=== PATIENT | female | born 1990 | race Caucasian/White ===

== ENCOUNTER 2018-09-12 07:57 | Inpatient (IN) | payer OTHER ==
--- NOTE | 2018-09-13 08:55 | PR ---
[facility] [address] [facility] [place], [place] [address] Signed Progress Notes IP Datetime Report Generated by CPN: 09/13/2018 08:55 PROGRESS NOTES: [id number] Impression: Normal progression of labor Procedures: Artificial ROM Plan: Anticipate Vaginal Delivery VITAL SIGNS: [id number] Vital Signs: Reviewed; Within Normal Limits EXAM: [id number] Dilatation: 2.5 Effacement: 50 Station: -2 Uterine Contractions: irregular MEMBRANES: [id number] Membrane Status: Ruptured Amniotic Fluid Color: Clear ROM Note: AROM without difficulty, moderate amount clear fluid, head well-applied to cervix Comments: FS BS = 83, continue IV Insulin protocol during labor Fetus A: [id number] FHR Baseline: 135 Variability: Moderate 6-25bpm Accelerations: 15X15 Presentation: Vertex Fetus B: [id number] Signing Physician: Edna Alaniz MD Copies: ~ *Electronically Signed* 09/13/18 0855 EDNA ALANIZ MD PATIENT NAME: HOLLAND URRUTIA PROGRESS NOTE DATE OF : 91 PHYSICIAN: EDNA ALANIZ MD RPT #: [id number] REPORT IS CONFIDENTIAL AND NOT TO BE RELEASED WITHOUT AUTHORIZATION
--- NOTE | 2018-09-13 12:48 | PR ---
[facility] [address] [facility] [place], [place] [address] Signed Progress Notes IP Datetime Report Generated by CPN: 09/13/2018 12:48 PROGRESS NOTES: [id number] Impression: Normal progression of labor Procedures: Artificial ROM Plan: Continue present management; Anticipate Vaginal Delivery VITAL SIGNS: [id number] Vital Signs: Reviewed; Within Normal Limits EXAM: [id number] Dilatation: 4.0 Effacement: 75 Station: -2 Uterine Contractions: every 2-3 minutes MEMBRANES: [id number] Membrane Status: Ruptured Amniotic Fluid Color: Clear ROM Note: AROM without difficulty, moderate amount clear fluid, head well-applied to cervix Comments: Tolerating contracitons, contracitons getting stronger FS BS = 81 Doing well. Continue monitoring Fetus A: [id number] FHR Baseline: 135 Variability: Moderate 6-25bpm Accelerations: 15X15 Decelerations: None Presentation: Vertex Fetus B: [id number] Signing Physician: Edna Alaniz MD Copies: ~ *Electronically Signed* 09/13/18 1248 EDNA ALANIZ MD PATIENT NAME: HOLLAND URRUTIA PROGRESS NOTE DATE OF : 91 PHYSICIAN: EDNA ALANIZ MD RPT #: [id number] REPORT IS CONFIDENTIAL AND NOT TO BE RELEASED WITHOUT AUTHORIZATION
--- NOTE | 2018-09-13 16:56 | PR ---
[facility] [address] [facility] [place], [place] [address] Signed Progress Notes IP Datetime Report Generated by CPN: 09/13/2018 16:56 PROGRESS NOTES: [id number] Impression: Normal progression of labor Procedures: Epidural Placement Plan: Continue present management; Anticipate Vaginal Delivery VITAL SIGNS: [id number] Vital Signs: Reviewed; Within Normal Limits EXAM: [id number] Dilatation: 7.0 Effacement: 90 Station: -1 Uterine Contractions: every 2-3 minutes MEMBRANES: [id number] Membrane Status: Ruptured Amniotic Fluid Color: Clear ROM Note: AROM without difficulty, moderate amount clear fluid, head well-applied to cervix Comments: Comfortable now with Epidural, will continue monitoring. FS BS's continuing to be in acceptible range Fetus A: [id number] FHR Baseline: 135 Variability: Moderate 6-25bpm Accelerations: 15X15 Decelerations: None Presentation: Vertex Fetus B: [id number] Signing Physician: Edna Alaniz MD Copies: ~ *Electronically Signed* 09/13/18 1656 EDNA ALANIZ MD PATIENT NAME: HOLLAND URRUTIA PROGRESS NOTE DATE OF : 91 PHYSICIAN: EDNA ALANIZ MD RPT #: [id number] REPORT IS CONFIDENTIAL AND NOT TO BE RELEASED WITHOUT AUTHORIZATION
--- NOTE | 2018-09-13 19:23 | PR ---
[facility] [address] [facility] [place], [place] [address] Signed Progress Notes IP Datetime Report Generated by CPN: 09/13/2018 19:23 PROGRESS NOTES: [id number] Impression: Slow Progression of Labor Procedures: Epidural Placement Plan: Augmentation; Anticipate Vaginal Delivery VITAL SIGNS: [id number] Vital Signs: Reviewed; Within Normal Limits VS Notable Details: FS BS = 91 EXAM: [id number] Dilatation: 8.0 Effacement: 100 Station: -2 Uterine Contractions: every 5-6 minutes MEMBRANES: [id number] Membrane Status: Ruptured Amniotic Fluid Color: Clear ROM Note: AROM without difficulty, moderate amount clear fluid, head well-applied to cervix Comments: Comfortable with EPidural, but contracitons spacing out, no change in cervix past hour. Will start Pitocin Augmentation now Fetus A: [id number] FHR Baseline: 140 Variability: Moderate 6-25bpm Accelerations: 15X15 Decelerations: None Presentation: Vertex Fetus B: [id number] Signing Physician: Edna Alaniz MD Copies: ~ *Electronically Signed* 09/13/181922 EDNA ALANIZ MD PATIENT NAME: HOLLAND URRUTIA PROGRESS NOTE DATE OF : 91 PHYSICIAN: EDNA ALANIZ MD RPT #: [id number] REPORT IS CONFIDENTIAL AND NOT TO BE RELEASED WITHOUT AUTHORIZATION
--- NOTE | 2018-09-13 22:11 | PR ---
[facility] [place] [facility] [address] [facility] [place], [place] [address] Signed Progress Notes IP Datetime Report Generated by CPN: 09/13/2018 22:11 PROGRESS NOTES: [id number] Impression: Slow Progression of Labor Procedures: Epidural Placement Plan: Continue present management; Augmentation; Anticipate Vaginal Delivery VITAL SIGNS: [id number] Vital Signs: Reviewed; Within Normal Limits VS Notable Details: FS BS = 91 EXAM: [id number] Dilatation: 9.5 Effacement: 100 Station: 0 Uterine Contractions: every 1-3 minutes MEMBRANES: [id number] Membrane Status: Ruptured Amniotic Fluid Color: Clear ROM Note: AROM without difficulty, moderate amount clear fluid, head well-applied to cervix Comments: Getting uncomfortable with Epidural, would like to try N2O. Expect to be able to start pushing soon. Fetus A: [id number] FHR Baseline: 150 Variability: Moderate 6-25bpm Accelerations: 15X15 Decelerations: None Presentation: Vertex Fetus B: [id number] Signing Physician: Bean Alaniz MD Copies: ~ *Electronically Signed* 09/13/18 2219 BEAN ALANIZ MD PATIENT NAME: REDIGER,HOLLAND JUDY PROGRESS NOTE DATE OF : 91 PHYSICIAN: BEAN ALANIZ MD RPT #: [id number] REPORT IS CONFIDENTIAL AND NOT TO BE RELEASED WITHOUT AUTHORIZATION
--- NOTE | 2018-09-13 23:00 | PR ---
[facility] [address] [facility] [place], [place] [address] Signed Progress Notes IP Datetime Report Generated by CPN: 09/13/2018 23:00 PROGRESS NOTES: [id number] Impression: Slow Progression of Labor Procedures: Epidural Placement Plan: Continue present management; Augmentation; Anticipate Vaginal Delivery VITAL SIGNS: [id number] Vital Signs: Reviewed; Within Normal Limits VS Notable Details: FS BS = 91 EXAM: [id number] Dilatation: 10.0 Effacement: 100 Station: 0 Uterine Contractions: every 1-3 minutes MEMBRANES: [id number] Membrane Status: Ruptured Amniotic Fluid Color: Clear ROM Note: AROM without difficulty, moderate amount clear fluid, head well-applied to cervix Comments: Starting to push now, using N2O as needed Fetus A: [id number] FHR Baseline: 140 Variability: Moderate 6-25bpm Accelerations: 15X15 Decelerations: None Presentation: Vertex Fetus B: [id number] Signing Physician: Edna Alaniz MD Copies: ~ *Electronically Signed* 09/13/18 7880 EDNA ALANIZ MD PATIENT NAME: HOLLAND URRUTIA PROGRESS NOTE DATE OF : 91 PHYSICIAN: EDNA ALANIZ MD RPT #: [id number] REPORT IS CONFIDENTIAL AND NOT TO BE RELEASED WITHOUT AUTHORIZATION
--- NOTE | 2018-09-14 11:29 | PR ---
[facility] [address] [facility] [place] [address] Signed PP Progress Notes Datetime Report Generated by CPN: 09/14/2018 11:29 SUBJECTIVE: [id number] Pain: Within normal limits Nausea/Vomiting: Denies Vital Signs: [id number] Vital Signs: Reviewed; Within Normal Limits EXAM: [id number] Abdomen/Uterus: Normal Lochia: Normal Extremities: Normal IMPRESSION/PLAN/PROCEDURES: H8426544 Impression: Normal progression Plan: Continue present management Procedures: None Progress Notes: Doing well, without complaint, feeling much better than during delivery. Signing Physician: Edna Alaniz MD Copies: ~ *Electronically Signed* 09/14/18 1129 EDNA ALANIZ MD PATIENT NAME: HOLLAND URRUTIA PROGRESS NOTE DATE OF : 91 PHYSICIAN: EDNA ALANIZ MD RPT #: [id number] REPORT IS CONFIDENTIAL AND NOT TO BE RELEASED WITHOUT AUTHORIZATION
--- NOTE | 2018-09-15 13:01 | PR ---
[facility] [address] [place] [address] Signed PP Progress Notes Datetime Report Generated by CPN: 09/15/2018 13:01 SUBJECTIVE: [id number] Pain: Within normal limits Nausea/Vomiting: Denies Vital Signs: [id number] Vital Signs: Reviewed; Within Normal Limits Notable Details: PP Hgb/Hct = 8.7/25.2 EXAM: [id number] Abdomen/Uterus: Normal Lochia: Normal Extremities: Normal IMPRESSION/PLAN/PROCEDURES: H5432752 Impression: Normal progression Plan: Continue present management Procedures: None Progress Notes: Doing well, without complaint. Home tomorrow Signing Physician: Edna Alaniz MD Copies: ~ *Electronically Signed* 09/15/18 1301 EDNA ALANIZ MD PATIENT NAME: HOLLAND URRUTIA PROGRESS NOTE DATE OF : 91 PHYSICIAN: EDNA ALANIZ MD RPT #: [id number] REPORT IS CONFIDENTIAL AND NOT TO BE RELEASED WITHOUT AUTHORIZATION
--- NOTE | 2018-09-16 11:37 | PR ---
[facility] [address] [facility] [place], [place] [address] Signed PP Progress Notes Datetime Report Generated by CPN: 09/16/2018 11:36 SUBJECTIVE: [id number] Pain: Within normal limits Nausea/Vomiting: Denies Vital Signs: [id number] Vital Signs: Reviewed; Within Normal Limits Notable Details: PP Hgb/Hct = 8.7/25.2 EXAM: [id number] Cardiovascular: Not Done Respiratory: Not Done Abdomen/Uterus: Abnormal Lochia: Normal Vulva/Perineum: Not Done Breasts: Not Done CVA Tenderness: Not Done Extremities: Abnormal Incision: Not Applicable Progress: Normal Exam Comments: Fundus firm, NT @ U-1. 2+ LE edema IMPRESSION/PLAN/PROCEDURES: U7873065 Impression: Normal progression Plan: Discharge Procedures: None Progress Notes: Doing well. She is ready for D/C. Signing Physician: Janie Boss MD Copies: ~ *Electronically Signed* 09/16/18 1136 JANIE BOSS MD PATIENT NAME: GHADAHOLLAND PROGRESS NOTE DATE OF : 91 PHYSICIAN: JANIE BOSS MD RPT #: [id number] REPORT IS CONFIDENTIAL AND NOT TO BE RELEASED WITHOUT AUTHORIZATION
== END 2018-09-16 15:45 | disposition home or self-care (01) | DRG 806 ==
LOC: FBC 07:57
PROVIDERS: ADMIT General Practice
PROC: 10E0XZZ Delivery of Products of Conception, External Approach (ICD-10-PCS; principal; 2018-09-13)
PROC: 0KQM0ZZ Repair Perineum Muscle, Open Approach (ICD-10-PCS; 2018-09-13)
PROC: 10907ZC Drainage of Amniotic Fluid, Therapeutic from Products of Conception, Via Natural or Artificial Opening (ICD-10-PCS; 2018-09-13)
PROC: 00HU33Z Insertion of Infusion Device into Spinal Canal, Percutaneous Approach (ICD-10-PCS; 2018-09-13)
PROC: 3E0R3BZ Introduction of Anesthetic Agent into Spinal Canal, Percutaneous Approach (ICD-10-PCS; 2018-09-13)
PROC: 3E0P7VZ Introduction of Hormone into Female Reproductive, Via Natural or Artificial Opening (ICD-10-PCS; 2018-09-13)
DX: O24.424 Gestational diabetes mellitus in childbirth, insulin controlled (principal); O72.1 Other immediate postpartum hemorrhage; Z37.0 Single live birth; Z3A.39 39 weeks gestation of pregnancy; O99.824 Streptococcus B carrier state complicating childbirth; O70.1 Second degree perineal laceration during delivery
CPT/HCPCS: 01960; 36415; 85027; J2540; J2590; J7060; J7120

== ENCOUNTER 2022-10-05 00:03 | Inpatient (IN) | payer OTHER ==
[~2022-10-05] VITALS: Ht 175.3 cm; Wt 99.8 kg
--- NOTE | 2022-10-05 11:11 | PR ---
[facility] [address] [facility] [place], [place] [address] Signed Progress Notes IP Datetime Report Generated by CPN: 10/05/2022 11:10 PROGRESS NOTES: [id number] Impression: Normal Progression of Labor Procedures: Artificial ROM Plan: Continue Present Management; Anticipate Vaginal Delivery VITAL SIGNS: [id number] Vital Signs: Reviewed; Within Normal Limits VS Notable Details: BS = 86 EXAM: [id number] Dilatation: 3.0 Effacement: 25 Station: -2 Contractions: every 4-6 minutes MEMBRANES: [id number] Membranes Status: Ruptured Comments: Beginning to feel more contractions, still mild. Would like Epidural later - ordered. Will start IV Insulin sliding scale once contractions get a little stronger. FETUS A: A7242097 FHR Baseline: 140 Variability: Moderate 6-25bpm Accelerations: 10X10 FETUS B: [id number] Signing Physician: Edna Alaniz MD Copies: ~ *Electronically Signed* 10/05/22 1110 EDNA ALANIZ MD PATIENT NAME: HLOLAND URRUTIA PROGRESS NOTE DATE OF : 91 PHYSICIAN: EDNA ALANIZ MD RPT #: [id number] REPORT IS CONFIDENTIAL AND NOT TO BE RELEASED WITHOUT AUTHORIZATION
--- NOTE | 2022-10-05 16:50 | PR ---
[facility] [address] [facility] [place], [place] [address] Signed Progress Notes IP Datetime Report Generated by CPN: 10/05/2022 16:50 PROGRESS NOTES: [id number] Impression: Normal Progression of Labor Procedures: Artificial ROM Plan: Continue Present Management VITAL SIGNS: B7700028 Vital Signs: Reviewed; Within Normal Limits VS Notable Details: BS = 86 EXAM: I0089090 Dilatation: 4.5 Effacement: 80 Station: -2 Contractions: every 4-6 minutes MEMBRANES: [id number] Membranes Status: Ruptured Comments: Doing well, but feeling contractions. Anesthesia on way to reevaluate. Continue monitoring BS's and labor pattern. May need Pitocin augmentation. FETUS A: [id number] FHR Baseline: 140 Variability: Moderate 6-25bpm Accelerations: 10X10 FETUS B: [id number] Signing Physician: Edna Alaniz MD Copies: ~ *Electronically Signed* 10/05/22 1340 EDNA ALANIZ MD PATIENT NAME: HOLLAND URRUTIA PROGRESS NOTE DATE OF : 91 PHYSICIAN: EDNA ALANIZ MD RPT #: [id number] REPORT IS CONFIDENTIAL AND NOT TO BE RELEASED WITHOUT AUTHORIZATION
--- NOTE | 2022-10-05 17:47 | PR ---
[facility] [address] [facility] [place], [place] [address] Signed Progress Notes IP Datetime Report Generated by CPN: 10/05/2022 17:47 PROGRESS NOTES: [id number] Impression: Normal Progression of Labor Other Impressions: Slow progress Procedures: Artificial ROM Plan: Continue Present Management VITAL SIGNS: [id number] Vital Signs: Reviewed; Within Normal Limits VS Notable Details: BS = 86 EXAM: [id number] Dilatation: 5.0 Effacement: 90 Station: -2 Contractions: every 4-6 minutes MEMBRANES: [id number] Membranes Status: Ruptured Comments: Patient tolerating contractions well with Epidural. Continue monitoring. FETUS A: [id number] FHR Baseline: 140 Variability: Moderate 6-25bpm Accelerations: 10X10 FETUS B: [id number] Signing Physician: Edna Alaniz MD Copies: ~ *Electronically Signed* 10/05/22 1747 EDNA ALANIZ MD PATIENT NAME: HOLLAND URRUTIA PROGRESS NOTE DATE OF : 91 PHYSICIAN: EDNA ALANIZ MD RPT #: [id number] REPORT IS CONFIDENTIAL AND NOT TO BE RELEASED WITHOUT AUTHORIZATION
--- NOTE | 2022-10-05 18:29 | PR ---
[facility] [address] [facility] [place], [place] [address] Signed Progress Notes IP Datetime Report Generated by CPN: 10/05/2022 18:29 PROGRESS NOTES: [id number] Impression: Normal Progression of Labor Other Impressions: Slow Progress Procedures: Intrauterine Pressure Catheter; Scalp Electrode Plan: Augmentation VITAL SIGNS: O0169294 Vital Signs: Reviewed; Within Normal Limits VS Notable Details: BS = 86 EXAM: [id number] Dilatation: 5.0 Effacement: 90 Station: -2 Contractions: every 4-6 minutes MEMBRANES: [id number] Membranes Status: Ruptured Comments: Contractions seem to be spacing out. Will start Pitocin augmentation. May need Anesthesia to return if patient getting more uncomfortable. FETUS A: [id number] FHR Baseline: 140 Variability: Moderate 6-25bpm Accelerations: 10X10 FETUS B: [id number] Signing Physician: Bean Alaniz MD Copies: ~ *Electronically Signed* 10/05/22 1829 BEAN ALANIZ MD PATIENT NAME: VAISHALIHOLLAND BAILEY PROGRESS NOTE DATE OF : 91 PHYSICIAN: BEAN ALANIZ MD RPT #: [id number] REPORT IS CONFIDENTIAL AND NOT TO BE RELEASED WITHOUT AUTHORIZATION
--- NOTE | 2022-10-05 19:57 | PR ---
[facility] [address] [facility] [place], [place] [address] Signed Progress Notes IP Datetime Report Generated by CPN: 10/05/2022 19:57 PROGRESS NOTES: [id number] Impression: Normal Progression of Labor Other Impressions: Slow Progress Procedures: Intrauterine Pressure Catheter; Scalp Electrode Plan: Continue Present Management; Anticipate Vaginal Delivery VITAL SIGNS: A1902109 Vital Signs: Reviewed; Within Normal Limits VS Notable Details: BS = 86 EXAM: [id number] Dilatation: 8.0 Effacement: 90 Station: -1 Contractions: every 4-6 minutes MEMBRANES: [id number] Membranes Status: Ruptured Comments: Now comfortable with Epidural; had to be restarted, so Pitocin not started yet. Will give low dose now. FETUS A: [id number] FHR Baseline: 140 Variability: Moderate 6-25bpm Accelerations: 10X10 FETUS B: [id number] Signing Physician: Bean Alaniz MD Copies: ~ *Electronically Signed* 10/05/221956 BEAN ALANIZ MD PATIENT NAME: VAISHALIHOLLAND BAILEY PROGRESS NOTE DATE OF : 91 PHYSICIAN: BEAN ALANIZ MD RPT #: [id number] REPORT IS CONFIDENTIAL AND NOT TO BE RELEASED WITHOUT AUTHORIZATION
--- NOTE | 2022-10-05 21:01 | PR ---
[facility] [address] [facility] [place], [place] [address] Signed Progress Notes IP Datetime Report Generated by CPN: 10/05/2022 21:00 PROGRESS NOTES: [id number] Impression: Normal Progression of Labor Other Impressions: Slow Progress Procedures: Intrauterine Pressure Catheter; Scalp Electrode Plan: Continue Present Management; Anticipate Vaginal Delivery VITAL SIGNS: Z4718759 Vital Signs: Reviewed; Within Normal Limits VS Notable Details: BS = 86 EXAM: [id number] Dilatation: 9.5 Effacement: 90 Station: 0 Contractions: every 4-6 minutes MEMBRANES: [id number] Membranes Status: Ruptured Comments: Comfortable with Epidural. Several decels, some with late component, but good variability and expect delivery soon, so will continue close monitoring. Try different positions. FETUS A: [id number] FHR Baseline: 140 Variability: Moderate 6-25bpm Accelerations: 10X10 FETUS B: [id number] Signing Physician: Edna Alaniz MD Copies: ~ *Electronically Signed* 10/05/222099 EDNA ALANIZ MD PATIENT NAME: HOLLAND URRUTIA PROGRESS NOTE DATE OF : 91 PHYSICIAN: EDNA ALANIZ MD RPT #: [id number] REPORT IS CONFIDENTIAL AND NOT TO BE RELEASED WITHOUT AUTHORIZATION
--- NOTE | 2022-10-06 04:34 | PR ---
[facility] [address] [place], [place] [address] Signed PP Progress Notes Datetime Report Generated by N: 10/06/2022 04:34 SUBJECTIVE: [id number] Vital Signs: X2226443 Vital Signs: Reviewed; Within Normal Limits Abdomen/Uterus: Abnormal Vulva/Perineum: Normal Extremities: Normal Exam Comments: uterus about 2 fb above umbilicus, expresed additional about 400 ml clots, with more felt to be in cervix, but exam too painful for patient IMPRESSION/PLAN/PROCEDURES: [id number] Other Impression: PP Hemorrhage, probably uterine atony Other Plans: TXA IV. DIC Panel, Hemogram STAT Other Procedures: to OR for EUA, PP Curettage Progress Notes: Patient about 7 hours PP now, was doing well, but when got up to try to void, had about 500 ml of clots and increasing pelvic pain. Bowens cath placed and Pitocin restarted, still having some cramping, no active bleeding. Discussed findings, probable cuase. Recommend going to OR for EUA, PP Curettage, possible Bakri Balloon. [employer] answered. Consent signed. Signing Physician: Edna Pena MD Copies: ~ *Electronically Signed* 10/06/22 0434 EDNA PENA MD PATIENT NAME: HOLLAND URRUTIA PROGRESS NOTE DATE OF : 91 PHYSICIAN: EDNA PENA MD RPT #: [id number] REPORT IS CONFIDENTIAL AND NOT TO BE RELEASED WITHOUT AUTHORIZATION
--- NOTE | 2022-10-06 06:12 | PR ---
[facility] [address] [place], [place] [address] Signed PP Progress Notes Datetime Report Generated by CPN: 10/06/2022 06:11 SUBJECTIVE: [id number] Pain: Within Normal Limits Vital Signs: W2374833 Vital Signs: Reviewed Notable Details: DIC Panel pending HGb/Hct = 10.9/32.0 Abdomen/Uterus: Abnormal Vulva/Perineum: Normal Extremities: Normal Exam Comments: uterus about 2 fb above umbilicus, expresed additional about 400 ml clots, with more felt to be in cervix, but exam too painful for patient IMPRESSION/PLAN/PROCEDURES: [id number] Other Impression: PP Cervical Laceration Other Plans: TXA IV. DIC Panel, Hemogram STAT Other Procedures: to OR for EUA, PP Curettage Progress Notes: Post-op EUA, PP Curettage, Repair of Cervical Laceration About 50 ml clot in cervix, minimal clots in uterine fundus, small cervical laceration @ 6:00 Patient tolerated procedure well, returning to [facility] Signing Physician: Edna Alaniz MD Copies: ~ *Electronically Signed* 10/06/22 0611 EDNA ALANIZ MD PATIENT NAME: HOLLAND URRUTIA PROGRESS NOTE DATE OF : 91 PHYSICIAN: EDNA ALANIZ MD RPT #: [id number] REPORT IS CONFIDENTIAL AND NOT TO BE RELEASED WITHOUT AUTHORIZATION
--- NOTE | 2022-10-06 06:18 | NUR ---
10/06/22 0618 Isadora,Araceli 0565 PT ARRIVED TO PACU AND DENIES PAIN AND NAUSEA. PT UNABLE TO MOVE LEGS OR FEET, EDUCATION GIVEN. VSS. PT REPORTS BEING DROWSY. PLAN OF CARE DISSCUSSED. 0610 PT CONTINMUES TO DENY PAIN AND NAUSEA, RESTING IN BED WITH EYES CLOSED.
--- NOTE | 2022-10-06 11:13 | OR ---
[facility] [address] [place], [place] [address] Signed DATE OF OPERATION: 10/06/2022 SURGEON: Bean Pena MD The patient of Dr. Pena. PREOPERATIVE DIAGNOSIS: hemorrhage, probable uterine atony. POSTOPERATIVE DIAGNOSES: hemorrhage, cervical laceration and uterine atony. PROCEDURE: Exam under anesthesia with curette and repair of cervical laceration. PARER: Dr. Bright. ANESTHESIA: Spinal with IV sedation. ESTIMATED BLOOD LOSS: 50 mL clot in the lower segment removed plus approximately 20 mL of bleeding during the procedure. COMPLICATIONS: None. DRAINS: Bowens to bladder. FINDINGS: Bowens catheter was already in place in the bladder on admission to the OR. There is no active bleeding, but there was approximately 50 mL clot in the cervix and lower segment. The rest of the uterine cavity had minimal small clots. The cervix had a very small laceration at 6 o'clock with only slight oozing. No excessive bleeding. DESCRIPTION OF PROCEDURE: The patient was brought to the operating room, placed in the supine position. After adequate spinal anesthesia was obtained, she was placed in the dorsal lithotomy Electronically Signed By: BEAN PENA MD 10/06/22 1113 PATIENT NAME: HOLLAND URRUTIA OPERATIVE REPORT DATE OF : 91 REPORT #: [id number] PHYSICIAN: BEAN PENA MD PCP: CAITLYN SARAH NP REPORT IS CONFIDENTIAL AND NOT TO BE RELEASED WITHOUT AUTHORIZATION [facility] [address] [facility] [place], [place] [address] Signed position, prepped and draped in usual sterile fashion. Bowens catheter was already in place. Manual exam was done. The large clot was noted to be sitting in the cervix in the lower segment, this was gently removed. On manual exploration of the uterus, no additional clots were felt. The fundus was palpated and seemed to be below the level of the umbilicus. The cervix was grasped with two ring forceps. The entire cervix was examined. At 6 o'clock, there seemed to be a very small laceration with a small amount of bleeding, did not seem to be enough to have caused the amount of bleeding earlier, but there was some bleeding, so this laceration was repaired with 0-chromic suture in a running locking stitch and a banjo curette was carefully introduced in the uterine cavity and uterine cavity was scraped with minimal very tiny clots removed. No bleeding. The uterus was palpated, massaged. The patient already had been given TXA and methergine and was receiving IV Pitocin, so the uterine atony appeared to be resolved. Small amount of oozing still from the cervix, so the cervix and lower segment were packed with gauze and left in place for 5 minutes. The gauze was then removed and the cervix examined, noted to have good hemostasis. At this point, it was decided to stop the procedure. All instruments were removed. Bowens was left in place. The patient tolerated the procedure well, went to recovery room in good condition. The sponge, needle and instrument count was correct at the end of the procedure. MD HUSSAIN WardB/MODL /[id number] Copies: ~ Electronically Signed By: BEAN PENA MD 10/06/22 1113 PATIENT NAME: HOLLAND URRUTIA OPERATIVE REPORT DATE OF : 91 REPORT #: [id number] PHYSICIAN: BEAN PENA MD PCP: CAITLYN SARAH NP REPORT IS CONFIDENTIAL AND NOT TO BE RELEASED WITHOUT AUTHORIZATION
--- NOTE | 2022-10-06 11:20 | PR ---
[facility] [address] [place], [place] [address] Signed PP Progress Notes Datetime Report Generated by CPN: 10/06/2022 11:20 SUBJECTIVE: [id number] Pain: Within Normal Limits Nausea/Vomiting: Denies Vital Signs: [id number] Vital Signs: Reviewed; Within Normal Limits Notable Details: f/u Hgb/Hct = 9.5/27.3 Abdomen/Uterus: Normal Lochia: Normal Vulva/Perineum: Normal Extremities: Normal Exam Comments: Urine clear, no blood IMPRESSION/PLAN/PROCEDURES: [id number] Other Impression: PP Anemia Plan: Continue Present Management Other Plans: TXA IV. DIC Panel, Hemogram STAT Procedures: None Other Procedures: to OR for EUA, PP Curettage Progress Notes: Doing well, no complaints except tired from overnight. Bleeding is minimal, uterine cramping much better. Will increase diet and activity as tolerated, continue Bowens cath for now Signing Physician: Edna Pena MD Copies: ~ *Electronically Signed* 10/06/22 1120 EDNA PENA MD PATIENT NAME: HOLLAND URRUTIA PROGRESS NOTE DATE OF : 89 PHYSICIAN: EDNA PENA MD RPT #: [id number] REPORT IS CONFIDENTIAL AND NOT TO BE RELEASED WITHOUT AUTHORIZATION
--- NOTE | 2022-10-07 09:56 | PR ---
[facility] [address] [facility] [place], [place] [address] Signed PP Progress Notes Datetime Report Generated by CPN: 10/07/2022 09:55 SUBJECTIVE: [id number] Pain: Within Normal Limits Nausea/Vomiting: Denies Vital Signs: [id number] Vital Signs: Reviewed; Within Normal Limits Notable Details: Repeat HGb/Hct = 7.8/22.9 Abdomen/Uterus: Normal Lochia: Normal Vulva/Perineum: Normal Extremities: Normal Exam Comments: Urine clear, no blood IMPRESSION/PLAN/PROCEDURES: [id number] Impression: Normal Progression Other Impression: PP Anemia Plan: Continue Present Management Other Plans: TXA IV. DIC Panel, Hemogram STAT Procedures: None Other Procedures: IV Iron Progress Notes: Patient feeling much better, no dizziness, voiding without difficulty, minimal bleeding. Discussed severe anemia; treatment options (Transfusion RBC's, IV Fe, Oral Fe) - discussed risks vs benefits, patient would like to proceed with IV Iron tranfusion. Will get 1st dose today and schedule repeat dose for next week (5-7 days). Probably home tomorrow. Signing Physician: Edna Alaniz MD Copies: ~ *Electronically Signed* 10/07/22 0955 EDNA ALANIZ MD PATIENT NAME: HOLLAND URRUTIA PROGRESS NOTE DATE OF : 91 PHYSICIAN: EDNA ALANIZ MD RPT #: [id number] REPORT IS CONFIDENTIAL AND NOT TO BE RELEASED WITHOUT AUTHORIZATION
--- NOTE | 2022-10-08 09:37 | PR ---
[facility] [address] [facility] [place], [place] [address] Signed PP Progress Notes Datetime Report Generated by CPN: 10/08/2022 09:37 SUBJECTIVE: [id number] Pain: Within Normal Limits Nausea/Vomiting: Denies Vital Signs: [id number] Vital Signs: Within Normal Limits Notable Details: Repeat HGb/Hct = 7.8/22.9 Abdomen/Uterus: Normal Lochia: Normal Vulva/Perineum: Normal Extremities: Normal Exam Comments: Urine clear, no blood IMPRESSION/PLAN/PROCEDURES: [id number] Impression: Normal Progression Other Impression: PP Anemia Plan: Discharge Other Plans: Boarder Status Procedures: None Other Procedures: IV Iron Progress Notes: Doing well without complaint, ready to gohome, but baby now needing phototherapy. Will make patient "Boarder" status. Signing Physician: Edna Alaniz MD Copies: ~ *Electronically Signed* 10/08/22 0937 EDNA ALANIZ MD PATIENT NAME: HOLLAND URRUTIA PROGRESS NOTE DATE OF : 91 PHYSICIAN: EDNA ALANIZ MD RPT #: [id number] REPORT IS CONFIDENTIAL AND NOT TO BE RELEASED WITHOUT AUTHORIZATION
== END 2022-10-08 16:35 | disposition home or self-care (01) | DRG 768 ==
LOC: FBC 00:03
PROVIDERS: ADMIT General Practice; ATTEND General Practice
PROC: 10E0XZZ Delivery of Products of Conception, External Approach (ICD-10-PCS; principal; 2022-10-05)
PROC: 0HQ9XZZ Repair Perineum Skin, External Approach (ICD-10-PCS; 2022-10-05)
PROC: 10907ZC Drainage of Amniotic Fluid, Therapeutic from Products of Conception, Via Natural or Artificial Opening (ICD-10-PCS; 2022-10-05)
PROC: 3E0P7VZ Introduction of Hormone into Female Reproductive, Via Natural or Artificial Opening (ICD-10-PCS; 2022-10-05)
PROC: 00HU33Z Insertion of Infusion Device into Spinal Canal, Percutaneous Approach (ICD-10-PCS; 2022-10-05)
PROC: 3E0R3BZ Introduction of Anesthetic Agent into Spinal Canal, Percutaneous Approach (ICD-10-PCS; 2022-10-05)
PROC: 10D07Z8 Extraction of Products of Conception, Other, Via Natural or Artificial Opening (ICD-10-PCS; 2022-10-06)
PROC: 0UQC7ZZ Repair Cervix, Via Natural or Artificial Opening (ICD-10-PCS; 2022-10-06)
DX: O24.424 Gestational diabetes mellitus in childbirth, insulin controlled (principal); Z37.0 Single live birth; O71.3 Obstetric laceration of cervix; O72.1 Other immediate postpartum hemorrhage; O99.03 Anemia complicating the puerperium; D64.9 Anemia, unspecified; Z67.40 Type O blood, Rh positive; Z3A.37 37 weeks gestation of pregnancy; O70.1 Second degree perineal laceration during delivery; O71.82 Other specified trauma to perineum and vulva; Z79.4 Long term (current) use of insulin
CPT/HCPCS: 00860; 36415; 85027; 85384; 85610; 85730; 86850; 86900; 86901; 86922; A9270; J0690; J2001; J2590; J2704; J3010; J7121; Q0138